=== PATIENT | female | born 1990 | race Caucasian/White ===

== ENCOUNTER → 2021-02-25 | Outpatient (CLI) | payer OTHER ==
[~2021-02-25] MED LIST: ISOVUE-370 76% 100ML VIAL As Ordered ONE
--- NOTE | 2021-02-25 09:22 | REPVR ---
PROCEDURE INFORMATION: Exam: CT Neck With Contrast Exam date and time: 02/25/2021 8:46 AM Age: 30 years old Clinical indication: Other: Dysphonia; Patient HX: Recent biopsy of vocal chords TECHNIQUE: Imaging protocol: Computed tomography images of the neck with contrast. Radiation optimization: All CT scans at this facility use at least one of these dose optimization techniques: automated exposure control; mA and/or kV adjustment per patient size (includes targeted exams where dose is matched to clinical indication); or iterative reconstruction. Contrast material: [id number]; Contrast volume: 75 ml; Contrast route: INTRAVENOUS (IV); COMPARISON: No relevant prior studies available. FINDINGS: Nasopharynx: Unremarkable. Oropharynx: Unremarkable. No significant tonsillar enlargement. Hypopharynx: Unremarkable. Larynx: No discrete mass lesion or hemorrhage is seen in the region of the vocal cords in this patient with recent history of biopsy. Retropharyngeal space: Unremarkable. Submandibular/Parotid glands: Normal. Glands are normal in size. Thyroid: Normal. No enlarged or calcified nodules. Lymph nodes: There are multiple mildly enlarged level I and level II lymph nodes in the neck bilaterally, most likely reactive in etiology. Trachea: Visualized trachea is unremarkable. Lungs: Unremarkable as visualized. Bones/joints: Unremarkable. No acute fracture. Soft tissues: Unremarkable. No significant soft tissue swelling. IMPRESSION: 1. No discrete mass lesion or hemorrhage is seen in the region of the vocal cords in this patient with recent history of biopsy. 2. There are multiple mildly enlarged level I and level II lymph nodes in the neck bilaterally, most likely reactive in etiology. Electronically signed by: Misael Wilson On 02/25/2021 09:22:45 AM
== END ==
LOC: M RAD 08:23
PROVIDERS: ATTEND Otolaryngology
DX: R49.0 Dysphonia (principal); R59.0 Localized enlarged lymph nodes
CPT/HCPCS: 70491; Q9967

== ENCOUNTER → 2021-03-12 | Outpatient (CLI) | payer OTHER ==
[~2021-03-12] MED LIST changes: -ISOVUE-370 76% 100ML VIAL As Ordered ONE; +OMEP1CAP73 PO
--- NOTE | 2021-03-13 12:42 | ECGEPIP ---
[facility] Test Date: 2021-03-12 Pat Name: MELISSA MARADIAGA Department: Room: - Gender: Female Carpet [employer]: SAY : 1990 Requested By: Jamie Jett Order Number: [id number] Reading MD: Ryan Riojas Measurements Intervals [place] Rate: 63 P: 31 KS: 130 QRS: 73 QRSD: 84 T: 53 QT: 410 QTc: 419 Interpretive Statements Normal sinus rhythm with sinus arrhythmia normal study Electronically Signed on 03-13-2021 12:42:25 EDT by Ryan Riojas
== END ==
LOC: M EKG 11:05
PROVIDERS: ATTEND Anesthesiology
DX: Z01.818 Encounter for other preprocedural examination (principal); R03.0 Elevated blood-pressure reading, without diagnosis of hypertension

== ENCOUNTER → 2021-03-12 | Outpatient (CLI) | payer OTHER | LOC: M LABSMTC 11:35 | PROVIDERS: ATTEND Anesthesiology | DX: Z01.812 Encounter for preprocedural laboratory examination (principal) ==

== ENCOUNTER → 2021-05-07 | Outpatient (CLI) | payer OTHER | LOC: M LABSMTC 12:21 | PROVIDERS: ATTEND Anesthesiology | DX: Z01.818 Encounter for other preprocedural examination (principal); Z11.52 Encounter for screening for COVID-19 ==

== ENCOUNTER 2021-05-12 09:39 | Day surgery (SDC) | payer OTHER ==
[~2021-05-12] VITALS: Ht 172.7 cm; Wt 131.0 kg
[~2021-05-12 09:39] MED LIST changes: +LIDOCAINE 1% MDV 20ML VIAL SQ PRN; +LR 1,000 ML IV ONE; +dexameTHASONE 4 MG/ML 1ML VIAL (J1100 PER 1MG) IV ONE
[2021-05-12] MEDS ORDERED: METHYLENE BLUE 0.5% (5MG/ML) 10 ML AMP (PROVAYBLUE) As Ordered ONE (09:47)
[2021-05-12] MEDS ORDERED: LIDOCAINE W/EPINEPHRINE 1% 20ML VIAL As Ordered ONE (09:47)
[2021-05-12] MEDS ORDERED: OXYMETAZOLINE 0.05% NASAL SPRAY (AFRIN) As Ordered ONE (09:48)
[2021-05-12] MEDS ORDERED: propofoL 200 MG/20 ML VIAL As Ordered ONE (10:24)
[2021-05-12] MEDS ORDERED: SUGAMMADEX SODIUM 500 MG/5 ML VIAL (BRIDION) As Ordered ONE (10:24)
[2021-05-12] MEDS ORDERED: ROCURONIUM BROMIDE 50 MG/5 ML VIAL As Ordered ONE (10:24)
[2021-05-12] MEDS ORDERED: METOCLOPRAMIDE INJ 10MG/2ML VIAL (J2765 PER 1) As Ordered ONE (10:24)
[2021-05-12] MEDS ORDERED: dexameTHASONE 4 MG/ML 1ML VIAL (J1100 PER 1MG) As Ordered ONE ×2 (10:24→11:57)
[2021-05-12] MEDS ORDERED: fentaNYL 100 MCG/2 ML INJECTION (J3010) As Ordered ONE (10:24)
[2021-05-12] MEDS ORDERED: ONDANSETRON 4MG/2ML VIAL As Ordered ONE (10:24)
[2021-05-12] MEDS ORDERED: LIDOCAINE 2% 100MG/5ML SDV (FOR ANES.) As Ordered ONE (10:24)
[2021-05-12] MEDS ORDERED: MIDAZOLAM INJ 2MG/2ML VIAL (J2250 PER 1MG) As Ordered ONE (11:21)
[2021-05-12] MEDS ORDERED: ePHEDrine SULFATE 25 MG/5 ML(5MG/ML) SYRINGE As Ordered ONE (12:05)
[2021-05-12] MEDS ORDERED: ACETAMINOPHEN 1000MG 100ML IV BTL (OFIRMEV) (J0131 PER 10MG) As Ordered ONE (13:52)
[2021-05-12 14:12] VITALS: BP 131/87
== END 2021-05-12 14:18 | disposition home or self-care (01) ==
LOC: M SDC 09:39
PROVIDERS: ATTEND Otolaryngology
DX: R49.0 Dysphonia (principal); K58.8 Other irritable bowel syndrome; K21.9 Gastro-esophageal reflux disease without esophagitis; Z79.899 Other long term (current) drug therapy; F17.218 Nicotine dependence, cigarettes, with other nicotine-induced disorders
CPT/HCPCS: 31536; 88305; J0131; J1100; J2250; J2405; J2765; J3010; Q9968